=== PATIENT | male | born 1965 | race Caucasian/White ===

== ENCOUNTER 2023-08-15 08:21 | Day surgery (SDC) | payer OTHER ==
[~2023-08-15] VITALS: Ht 167.6 cm; Wt 68.0 kg
[2023-08-15] MEDS ORDERED: LIDOCAINE 2% 100 MG/5 ML UJET TP ONE ×2 (09:03→10:15)
[2023-08-15] MEDS ORDERED: fentaNYL citrate 0.05 MG/ML VIAL ONE (09:03)
[2023-08-15] MEDS ORDERED: fentaNYL citrate 0.05 MG/ML VIAL IVP ONE (10:15)
[2023-08-15] MEDS ORDERED: SIMETHICONE 40 MG/0.6 ML ONE (11:15)
== END 2023-08-15 10:58 | disposition home or self-care (01) ==
LOC: MDS 08:21 → MMU 08:22 → MDS 10:58
PROVIDERS: ATTEND Internal Medicine Gastroenterology
DX: Z12.11 Encounter for screening for malignant neoplasm of colon (principal); E78.00 Pure hypercholesterolemia, unspecified; Z80.3 Family history of malignant neoplasm of breast; Z79.899 Other long term (current) drug therapy
CPT/HCPCS: 45378; J3010